=== PATIENT | female | born 1970 | race Asian ===

== ENCOUNTER 2024-03-19 20:39 | Emergency (ER) | payer OTHER ==
[~2024-03-19] VITALS: Ht 157.5 cm; Wt 64.0 kg
[2024-03-19 21:08] VITALS: O2SAT 100
[2024-03-20] MEDS ORDERED: NAPR-1176 MT (01:25)
[2024-03-20] MEDS ORDERED: LIDO700A15 TP (01:26)
[2024-03-20] MEDS: KETOROLAC 15MG/ML VIAL IM ONE (01:30)
[2024-03-20 02:29] VITALS: BP 143/79; PULSE 78; RESP 18; TEMP 36.89184; O2SAT 100
== END 2024-03-20 02:30 | disposition home or self-care (01) ==
LOC: ER 20:39
DX: M25.561 Pain in right knee (principal); E78.00 Pure hypercholesterolemia, unspecified; Z79.1 Long term (current) use of non-steroidal anti-inflammatories (NSAID)
CPT/HCPCS: 99283; 73562; 96372; J1885